=== PATIENT | male | born 1945 | race African-American/Black ===

== ENCOUNTER 2020-10-19 16:08 | Inpatient (IN) | payer MEDICARE ==
[2020-10-19 17:55] VITALS: BMI 23.0
[2020-10-19] MEDS: Sodium Chloride 0.9% 1,000 ML IV SCH (22:38)
[2020-10-20 01:50] LABS: SARS-CoV-2 PCR by NAA Not Detected (NotDetected)
[2020-10-20 04:53] LABS: #Eosinphils 0.2 10x3/uL (0.0-0.5); #Monocytes 0.6 10x3/uL (0.0-1.1); #Neutrophils 2.4 10x3/uL (1.5-8.4); %Basophils 0.2 % (0.0-2.0); %Eosinophils 3.2 % (0.0-6.0); %Lymphocytes 34.9 % (18.0-47.0); %Monocytes 12.7 % (0.0-10.0); %Neutrophils 48.8 % (40.0-75.0); Hemoglobin 11.2 g/dL (13.5-17.5); Mean Corpuscular HGB CONC 33.6 g/dL (32.0-36.0); Mean Corpuscular Hemoglobin 30.9 pg (27.0-33.0); Mean Corpuscular Volume 91.7 fl (81.2-95.1); Mean Platelet Volume 9.7 fl (7.4-10.4); Platelet Count 225 10x3/uL (150-450); RBC Distribution Width 14.4 % (11.5-14.5); Red Blood Cell (RBC) Count 3.63 10x6/uL (4.32-5.72)
[2020-10-20 05:01] LABS: Anion Gap 15 mmol/L (10-20); BUN (Urea Nitrogen) 10 mg/dL (8.4-25.7); Calc. Creatinine Clearance 66 mL/min (70-130); Carbon Dioxide 20 mmol/L (23-31); Chloride 108 mmol/L (98-107); Glucose 94 mg/dL (83-110); Potassium 4.1 mmol/L (3.5-5.1); Sodium 139 mmol/L (136-145)
[2020-10-20 05:20] LABS: Syphilis Antibody Nonreactive (Nonreactive); Syphilis Antibody Index 0.03 S/CO (<1.00 Non-Reactive)
[2020-10-20 05:21] LABS: Thyroid Stimulating Hormone 1.2346 uIU/mL (0.35-4.94)
[2020-10-20 05:46] LABS: Bilirubin Neg (Negative); Blood, Urine Negative (Negative); Clarity Clear (Clear); Glucose, Urine (Dipstick) Normal (Negative); Ketone, Urine Negative (Negative); Leukocyte Negative (Negative); Nitrite Negative (Negative); Protein, Urine (Dipstick) Negative (Neg-Trace); Specific Gravity, Urine 1.005 (1.002-1.036); Urobilinogen Normal mg/dL (Less than 2)
[2020-10-20 05:56] LABS: Bacteria/HPF None Seen HPF (None Seen); RBC/HPF 0-3 HPF (0-3); Squamous Epithelial 0-3 HPF (0-3); WBC/HPF 0-3 HPF (0-3)
[2020-10-20] MEDS ORDERED: Magnesium 2 GM/50 ML 2 GM in Premix Bag 1 BAG IVPB SCH (07:30)
[2020-10-20] MEDS: Enoxaparin Sodium 40 MG/0.4 ML SYRINGE SC SCH (09:06)
[2020-10-20] MEDS: Oxybutynin 5 MG TAB PO SCH ×2 (09:07→21:00)
[2020-10-20] MEDS: metFORMIN 500 MG TAB PO SCH (09:07)
[2020-10-20] MEDS: Tamsulosin HCl 0.4 MG CAP PO SCH (09:07)
[2020-10-20] MEDS: Doxycycline 100 MG CAP PO SCH ×2 (09:07→21:59)
[2020-10-20] MEDS: Gabapentin 300 MG CAP PO SCH ×2 (09:08→21:59)
[2020-10-20] MEDS: Lisinopril 10 MG TAB PO SCH (09:09)
[2020-10-20] MEDS: Amlodipine 10 MG TAB PO SCH (09:10)
[2020-10-20] MEDS: Ferrous Sulfate 325 MG TAB PO SCH (09:12)
[2020-10-20] MEDS: Sodium Chloride 0.9% 1,000 ML IV SCH ×3 (09:13→22:00)
[2020-10-20] MEDS ORDERED: Meclizine HCl 12.5 MG TAB PO PRN (13:28)
[2020-10-20] MEDS ORDERED: Fluticasone Propionate Nasal Spray 16 gm Bottle NASAL SCH (14:00)
[2020-10-20] MEDS: Simvastatin 10 MG TAB PO SCH (21:00)
[2020-10-21 05:45] LABS: #Eosinphils 0.1 10x3/uL (0.0-0.5); #Monocytes 0.6 10x3/uL (0.0-1.1); #Neutrophils 2.4 10x3/uL (1.5-8.4); %Basophils 0.2 % (0.0-2.0); %Eosinophils 2.6 % (0.0-6.0); %Monocytes 11.7 % (0.0-10.0); %Neutrophils 47.3 % (40.0-75.0); Hemoglobin 10.6 g/dL (13.5-17.5); Mean Corpuscular HGB CONC 33.1 g/dL (32.0-36.0); Mean Corpuscular Hemoglobin 30.5 pg (27.0-33.0); Mean Corpuscular Volume 92.2 fl (81.2-95.1); Platelet Count 211 10x3/uL (150-450); RBC Distribution Width 14.6 % (11.5-14.5); Red Blood Cell (RBC) Count 3.47 10x6/uL (4.32-5.72)
[2020-10-21 06:04] LABS: Anion Gap 14 mmol/L (10-20); BUN (Urea Nitrogen) 11 mg/dL (8.4-25.7); Calc. Creatinine Clearance 63 mL/min (70-130); Calcium 8.8 mg/dL (7.8-10.44); Carbon Dioxide 19 mmol/L (23-31); Chloride 111 mmol/L (98-107); Glucose 112 mg/dL (83-110); Potassium 4.1 mmol/L (3.5-5.1); Sodium 140 mmol/L (136-145)
[2020-10-21 06:07] LABS: Troponin I Less than 0.010 ng/mL (< 0.028)
[2020-10-21] MEDS: Sodium Chloride 0.9% 1,000 ML IV SCH ×3 (06:28→21:43)
[2020-10-21] MEDS: Enoxaparin Sodium 40 MG/0.4 ML SYRINGE SC SCH (08:39)
[2020-10-21] MEDS: Gabapentin 300 MG CAP PO SCH ×2 (08:39→21:37)
[2020-10-21] MEDS: Doxycycline 100 MG CAP PO SCH ×2 (08:40→21:36)
[2020-10-21] MEDS: Amlodipine 10 MG TAB PO SCH (08:41)
[2020-10-21] MEDS: Tamsulosin HCl 0.4 MG CAP PO SCH (08:42)
[2020-10-21] MEDS: Oxybutynin 5 MG TAB PO SCH ×2 (08:42→21:36)
[2020-10-21] MEDS: Ferrous Sulfate 325 MG TAB PO SCH (08:42)
[2020-10-21] MEDS: Fluticasone Propionate Nasal Spray 16 gm Bottle NASAL SCH (08:43)
[2020-10-21] MEDS: Lisinopril 10 MG TAB PO SCH (08:43)
[2020-10-21] MEDS: metFORMIN 500 MG TAB PO SCH (08:43)
[2020-10-21] MEDS: AMOXicillin 250 MG CAP PO SCH (21:36)
[2020-10-21] MEDS: Simvastatin 10 MG TAB PO SCH (21:36)
[2020-10-22] MEDS: Sodium Chloride 0.9% 1,000 ML IV SCH ×3 (06:01→22:26)
[2020-10-22] MEDS: Ferrous Sulfate 325 MG TAB PO SCH (08:17)
[2020-10-22] MEDS: AMOXicillin 250 MG CAP PO SCH ×2 (08:17→22:26)
[2020-10-22] MEDS: Lisinopril 10 MG TAB PO SCH (08:17)
[2020-10-22] MEDS: Enoxaparin Sodium 40 MG/0.4 ML SYRINGE SC SCH (08:17)
[2020-10-22] MEDS: Gabapentin 300 MG CAP PO SCH ×2 (08:18→22:24)
[2020-10-22] MEDS: metFORMIN 500 MG TAB PO SCH (08:18)
[2020-10-22] MEDS: Doxycycline 100 MG CAP PO SCH ×2 (08:18→22:26)
[2020-10-22] MEDS: Amlodipine 10 MG TAB PO SCH (08:18)
[2020-10-22] MEDS: Oxybutynin 5 MG TAB PO SCH ×2 (08:18→22:26)
[2020-10-22] MEDS: Fluticasone Propionate Nasal Spray 16 gm Bottle NASAL SCH (08:19)
[2020-10-22] MEDS: Simvastatin 10 MG TAB PO SCH (22:26)
[2020-10-23] MEDS: AMOXicillin 250 MG CAP PO SCH ×2 (07:47→20:53)
[2020-10-23] MEDS: Enoxaparin Sodium 40 MG/0.4 ML SYRINGE SC SCH (07:47)
[2020-10-23] MEDS: Lisinopril 10 MG TAB PO SCH (07:48)
[2020-10-23] MEDS: Doxycycline 100 MG CAP PO SCH ×2 (07:49→20:53)
[2020-10-23] MEDS: Gabapentin 300 MG CAP PO SCH ×2 (07:49→20:52)
[2020-10-23] MEDS: Ferrous Sulfate 325 MG TAB PO SCH (07:50)
[2020-10-23] MEDS: Oxybutynin 5 MG TAB PO SCH (07:51)
[2020-10-23] MEDS: metFORMIN 500 MG TAB PO SCH (07:51)
[2020-10-23] MEDS: Amlodipine 10 MG TAB PO SCH (07:53)
[2020-10-23] MEDS: Fluticasone Propionate Nasal Spray 16 gm Bottle NASAL SCH (07:58)
[2020-10-23] MEDS: Meclizine HCl 12.5 MG TAB PO SCH ×2 (10:03→15:31)
[2020-10-23] MEDS: Sodium Chloride 0.9% 1,000 ML IV SCH (10:04)
[2020-10-23] MEDS ORDERED: Diazepam 2 MG TAB PO SCH ×2 (11:15→11:30)
[2020-10-23] MEDS ORDERED: Diazepam 5 MG TAB PO SCH (14:00)
[2020-10-23] MEDS: Simvastatin 10 MG TAB PO SCH (20:53)
[2020-10-23] MEDS ORDERED: Acetaminophen 325 MG TAB PO SCH (22:45)
[2020-10-24] MEDS: Sodium Chloride 0.9% 1,000 ML IV SCH (00:26)
[2020-10-24] MEDS: Meclizine HCl 12.5 MG TAB PO SCH ×4 (00:30→23:43)
[2020-10-24 00:44] LABS: Bilirubin Neg (Negative); Blood, Urine Negative (Negative); Clarity Clear (Clear); Glucose, Urine (Dipstick) Normal (Negative); Ketone, Urine Negative (Negative); Leukocyte Negative (Negative); Nitrite Negative (Negative); Protein, Urine (Dipstick) Negative (Neg-Trace); Specific Gravity, Urine 1.005 (1.002-1.036); Urobilinogen Normal mg/dL (Less than 2)
[2020-10-24] MEDS ORDERED: Tamsulosin HCl 0.4 MG CAP PO SCH ×2 (00:45→11:00)
[2020-10-24 00:53] LABS: Urine Culture Reflex No No
[2020-10-24 00:54] LABS: Bacteria/HPF None Seen HPF (None Seen); RBC/HPF 0-3 HPF (0-3); Renal Epithelial 0-3 HPF (None Seen); Squamous Epithelial None Seen HPF (0-3); Transitional Epithelial 0-3 HPF (None Seen); WBC/HPF None Seen HPF (0-3)
[2020-10-24] MEDS: Enoxaparin Sodium 40 MG/0.4 ML SYRINGE SC SCH (08:31)
[2020-10-24] MEDS: Amlodipine 10 MG TAB PO SCH (08:31)
[2020-10-24] MEDS: AMOXicillin 250 MG CAP PO SCH ×2 (08:32→20:49)
[2020-10-24] MEDS: Ferrous Sulfate 325 MG TAB PO SCH (08:32)
[2020-10-24] MEDS: Gabapentin 300 MG CAP PO SCH ×2 (08:32→20:49)
[2020-10-24] MEDS: Doxycycline 100 MG CAP PO SCH ×2 (08:33→20:50)
[2020-10-24] MEDS: metFORMIN 500 MG TAB PO SCH (08:33)
[2020-10-24] MEDS: Lisinopril 10 MG TAB PO SCH (08:33)
[2020-10-24] MEDS: Fluticasone Propionate Nasal Spray 16 gm Bottle NASAL SCH (09:53)
[2020-10-24] MEDS ORDERED: Diazepam 5 MG TAB PO SCH (11:45)
[2020-10-24] MEDS: Tamsulosin HCl 0.4 MG CAP PO SCH (20:51)
[2020-10-24] MEDS: Simvastatin 10 MG TAB PO SCH (20:51)
[2020-10-25 04:42] LABS: #Eosinphils 0.1 10x3/uL (0.0-0.5); #Monocytes 0.7 10x3/uL (0.0-1.1); #Neutrophils 3.2 10x3/uL (1.5-8.4); %Basophils 0.2 % (0.0-2.0); %Eosinophils 2.2 % (0.0-6.0); %Lymphocytes 25.1 % (18.0-47.0); %Monocytes 13.4 % (0.0-10.0); %Neutrophils 58.9 % (40.0-75.0); Hemoglobin 9.8 g/dL (13.5-17.5); Mean Corpuscular HGB CONC 33.9 g/dL (32.0-36.0); Mean Corpuscular Hemoglobin 31.1 pg (27.0-33.0); Mean Corpuscular Volume 91.7 fl (81.2-95.1); Mean Platelet Volume 10.1 fl (7.4-10.4); Platelet Count 203 10x3/uL (150-450); RBC Distribution Width 14.6 % (11.5-14.5); Red Blood Cell (RBC) Count 3.15 10x6/uL (4.32-5.72); White Blood Cell (WBC) Count 5.4 10x3/uL (3.5-10.5)
[2020-10-25 04:58] LABS: ALT (SGPT) 20 U/L (8-55); AST (SGOT) 19 U/L (5-34); Albumin 3.1 g/dL (3.4-4.8); Alkaline Phosphatase 53 U/L (40-110); Anion Gap 14 mmol/L (10-20); BUN (Urea Nitrogen) 27 mg/dL (8.4-25.7); Bilirubin, Total 0.2 mg/dL (0.2-1.2); Calc. Creatinine Clearance 37 mL/min (70-130); Calcium 8.2 mg/dL (7.8-10.44); Carbon Dioxide 20 mmol/L (23-31); Chloride 109 mmol/L (98-107); Globulin 2.4 g/dL (2.4-3.5); Glucose 152 mg/dL (83-110); Potassium 3.6 mmol/L (3.5-5.1); Protein, Total 5.5 g/dL (5.8-8.1); Sodium 139 mmol/L (136-145)
[2020-10-25] MEDS: Doxycycline 100 MG CAP PO SCH ×2 (08:52→22:13)
[2020-10-25] MEDS: Meclizine HCl 12.5 MG TAB PO SCH ×2 (08:52→17:19)
[2020-10-25] MEDS: AMOXicillin 250 MG CAP PO SCH ×2 (08:52→22:14)
[2020-10-25] MEDS: Enoxaparin Sodium 40 MG/0.4 ML SYRINGE SC SCH (08:52)
[2020-10-25] MEDS: Ferrous Sulfate 325 MG TAB PO SCH (08:53)
[2020-10-25] MEDS: Gabapentin 300 MG CAP PO SCH ×2 (08:54→22:13)
[2020-10-25] MEDS: Fluticasone Propionate Nasal Spray 16 gm Bottle NASAL SCH (09:02)
[2020-10-25] MEDS: metFORMIN 500 MG TAB PO SCH (09:05)
[2020-10-25] MEDS ORDERED: Sodium Bicarbonate 150 MEQ in Dextrose 5% in Water 1,000 ML IV SCH (11:00)
[2020-10-25 14:58] LABS: Creatinine, Urine 240.04 mg/dL (63-166)
[2020-10-25] MEDS: Tamsulosin HCl 0.4 MG CAP PO SCH (22:14)
[2020-10-25] MEDS: Simvastatin 10 MG TAB PO SCH (22:17)
[2020-10-26] MEDS: Meclizine HCl 12.5 MG TAB PO SCH ×3 (01:32→17:44)
[2020-10-26 05:04] LABS: Anion Gap 16 mmol/L (10-20); BUN (Urea Nitrogen) 16 mg/dL (8.4-25.7); Calc. Creatinine Clearance 69 mL/min (70-130); Calcium 8.6 mg/dL (7.8-10.44); Carbon Dioxide 20 mmol/L (23-31); Chloride 109 mmol/L (98-107); Glucose 112 mg/dL (83-110); Sodium 141 mmol/L (136-145)
[2020-10-26] MEDS ORDERED: Finasteride 5 MG TAB PO SCH (08:00)
[2020-10-26] MEDS: Doxycycline 100 MG CAP PO SCH (09:03)
[2020-10-26] MEDS: AMOXicillin 250 MG CAP PO SCH (09:03)
[2020-10-26] MEDS: Enoxaparin Sodium 40 MG/0.4 ML SYRINGE SC SCH (09:03)
[2020-10-26] MEDS: Fluticasone Propionate Nasal Spray 16 gm Bottle NASAL SCH (09:04)
[2020-10-26] MEDS: Gabapentin 300 MG CAP PO SCH (09:04)
[2020-10-26] MEDS: Ferrous Sulfate 325 MG TAB PO SCH (09:04)
[2020-10-26 10:54] LABS: Troponin I Less than 0.010 ng/mL (< 0.028)
[2020-10-26 11:16] LABS: #Eosinphils 0.1 10x3/uL (0.0-0.5); #Neutrophils 4.7 10x3/uL (1.5-8.4); %Basophils 0.3 % (0.0-2.0); %Lymphocytes 17.5 % (18.0-47.0); %Monocytes 13.9 % (0.0-10.0); %Neutrophils 66.9 % (40.0-75.0); Hemoglobin 10.6 g/dL (13.5-17.5); Mean Corpuscular HGB CONC 33.4 g/dL (32.0-36.0); Mean Corpuscular Hemoglobin 30.5 pg (27.0-33.0); Mean Corpuscular Volume 91.4 fl (81.2-95.1); Mean Platelet Volume 9.8 fl (7.4-10.4); Platelet Count 226 10x3/uL (150-450); RBC Distribution Width 14.6 % (11.5-14.5); Red Blood Cell (RBC) Count 3.47 10x6/uL (4.32-5.72)
[2020-10-26 15:37] VITALS: BP 125/69; TEMP 99.4
[2020-10-26] MEDS ORDERED: Tamsulosin HCl 0.4 MG CAP PO SCH ×2 (21:00)
[2020-10-27] MEDS ORDERED: Finasteride 5 MG TAB PO SCH (09:00)
== END 2020-10-26 17:00 | DRG 149 ==
LOC: CSHTELE 16:08 → UNDOADMOB 16:08 → CSHTELE 21:28 → OBSVTOIN 10-23 11:08
PROVIDERS: ADMIT Family Medicine; ATTEND Internal Medicine
DX: H83.01 Labyrinthitis, right ear (principal); N17.9 Acute kidney failure, unspecified; E87.2 Acidosis; Z20.822 Contact with and (suspected) exposure to COVID-19; I12.9 Hypertensive chronic kidney disease with stage 1 through stage 4 chronic kidney disease, or unspecified chronic kidney disease; E11.22 Type 2 diabetes mellitus with diabetic chronic kidney disease; N18.32 Chronic kidney disease, stage 3b; R27.0 Ataxia, unspecified; K21.9 Gastro-esophageal reflux disease without esophagitis; N40.1 Benign prostatic hyperplasia with lower urinary tract symptoms; R35.0 Frequency of micturition; Z90.49 Acquired absence of other specified parts of digestive tract; F17.210 Nicotine dependence, cigarettes, uncomplicated; R06.00 Dyspnea, unspecified; E78.5 Hyperlipidemia, unspecified; R33.9 Retention of urine, unspecified; I95.9 Hypotension, unspecified; Z79.84 Long term (current) use of oral hypoglycemic drugs; Z79.899 Other long term (current) drug therapy
CPT/HCPCS: 36415; 36416; 70450; 71045; 76770; 80048; 80053; 81001; 82570; 82607; 82746; 83036; 83735; 84156; 84300; 84443; 84484; 84540; 85025; 86780; 87635; 93005; 93010; 93306; 93880; 96372; 96374; G0378; J1650; J3475; U0003; U0005